=== PATIENT | female | born 1975 | race Caucasian/White ===

== ENCOUNTER 2016-08-18 09:00 | Inpatient (IN) | payer OTHER ==
--- NOTE | ~2016-08-18 | PN ---
Unit #: [id number] #: [id number] Patient: PORTER LIU [id number] [facility] [address] [place] [address] [id number] I MR#: [id number] NAME: PORTER LIU ROOM: P122 Age: 40 Sex: F Admission Date: 08/18/2016 : 1975 Attending Physician: Dave Scott M.D. Admitting Physician: Bhupendra Darnell PROGRESS NOTES DATE 08/26/2016 DISCUSSION Ms. Liu is a 40-year-old white female who was seen today and chart was reviewed and case was discussed with the staff. She has been anxious, withdrawn and rather seclusive to herself. Meanwhile, she has been cooperative with treatment recommendations and has been taking the medications and tolerating them fairly well with no reported side effects. MENTAL STATUS EXAMINATION Young white female who was casually dressed with fair personal hygiene and appears to be in no acute distress or discomfort. She was awake and alert with impaired attention and concentration. Her mood was anxious with congruent affect. She denies any suicidal or homicidal ideations and also denies any auditory or visual hallucinations. Her insight and judgement remains slightly impaired. TREATMENT PLAN 1. Will continue on current medications and treatment protocol. Will monitor her response to the medications and make further adjustments as needed. 2. Will continue to follow up. Dictated by... Dave Scott M.D. IAA/margot TD: 08/27/2016 22:41 JOB #: [id number] Unit #: [id number] #: [id number] Patient: PORTER LIU PROGRESS NOTES Page 1 of 1 X Dave Scott MD PROGRESS NOTE
--- NOTE | ~2016-08-18 | PN ---
Unit #: [id number] #: [id number] Patient: PORTER LIU [id number] [facility] [address] [place] [address] [id number] I MR#: [id number] NAME: PORTER LIU ROOM: P122 Age: 40 Sex: F Admission Date: 08/18/2016 : 1975 Attending Physician: Dave Scott M.D. Admitting Physician: Bhupendra Darnell PROGRESS NOTES DATE 08/20/2016 DISCUSSION Ms. Liu is a 40-year-old white female who was seen today and chart was reviewed. Her case was discussed with the staff. She has been anxious, withdrawn, and rather seclusive to herself. Meanwhile, she has been cooperative with treatment recommendations and has been taking medications and tolerating them fairly well. MENTAL STATUS EXAMINATION Young white female who was casually dressed with a fair personal hygiene and appears to be in no acute distress or discomfort. The patient was awake and alert on interaction with intact orientation. Her mood was anxious with congruent affect. She denies any suicidal or homicidal ideation. Her insight and judgment remains slightly impaired. TREATMENT PLAN We will continue on current medications and treatment protocol. We will monitor her response to the medications and make further adjustments as needed. Dictated by... Dave Scott M.D. IAA/joesph TD: 08/21/2016 12:56 JOB #: [id number] Unit #: [id number] #: [id number] Patient: PORTER LIU PROGRESS NOTES Page 1 of 1 X Dave Scott MD X PROGRESS NOTE
--- NOTE | ~2016-08-18 | PN ---
Unit #: [id number] #: [id number] Patient: PORTER LIU [id number] [facility] [address] [place] [address] [id number] I MR#: [id number] NAME: PORTER LIU ROOM: P122 Age: 40 Sex: F Admission Date: 08/18/2016 : 1975 Attending Physician: Dave Scott M.D. Admitting Physician: Bhupendra Darnell PROGRESS NOTES DATE 08/19/2016 DISCUSSION Ms. Liu is a 40-year-old white female who was seen today and chart was reviewed and case was discussed with the staff. She remains anxious, withdrawn, disorganized and rather seclusive to herself. Meanwhile, she has been cooperative with treatment recommendations and has been taking medications and tolerating them fairly well. MENTAL STATUS EXAMINATION Young white female who was casually dressed with fair personal hygiene and appears to be in no acute distress or discomfort. She was awake and alert on interaction with intact orientation. Her mood was anxious with congruent affect. She denies any suicidal or homicidal ideation. Her insight and judgement remains slightly impaired. TREATMENT PLAN 1. Will continue on current medications and treatment protocol. Will monitor her response to the medications and make further adjustments as needed. 2. Will continue to follow up. Dictated by... Bhupendra Darnell/margot TD: 08/19/2016 17:38 JOB #: [id number] Unit #: [id number] #: [id number] Patient: PORTER LIU PROGRESS NOTES Page 1 of 1 X Dave Scott MD X PROGRESS NOTE
--- NOTE | ~2016-08-18 | DS ---
Unit #: [id number] #: [id number] [facility] [id number] [facility] [address] [place] [address] [id number] I MR#: [id number] NAME: PORTER LIU ROOM: [facility] Age: 40 Sex: F Admission Date: 08/18/2016 : 1975 Discharge Date: 08/26/2016 Attending Physician: Dave Scott M.D. DISCHARGE SUMMARY IDENTIFYING DATA Ms. Bernardo is a 40-year-old white female who is known to us from previous encounter, was brought to the hospital by her family. DISCHARGE DIAGNOSES Psychiatric: Chronic paranoid schizophrenia. Medical: None. Stressors: Moderate psychosocial stressors. HISTORY OF PRESENT ILLNESS Please see initial psychiatric evaluation for details. PAST PSYCHIATRIC HISTORY Please see initial psychiatric evaluation for details. PAST MEDICAL HISTORY Please see initial psychiatric evaluation for details. HOSPITAL COURSE The patient was admitted to the adult psychiatric unit at [facility] and was oriented to the hospital environment. Routine p.r.n. medications were initiated, and she was started back on her home medications and medications were adjusted, and she was on Risperdal which was started back, however, long-acting injectable antipsychotic was initiated. The patient was able to receive both the loading doses while on the unit with good therapeutic response and tolerability profile and as such, it was decided that she will be discharged home and will continue treatment on an outpatient basis. DISCHARGE CONDITION Stable. PROGNOSIS Fair. Dictated by... Bhupendra Darnell/leo TD: 09/16/2016 13:01 JOB #: [id number] Unit #: [id number] #: [id number] Patient: PORTER LIU DISCHARGE SUMMARY Page 1 of 1 X Dave Scott MD X DISCHARGE SUMMARY
--- NOTE | ~2016-08-18 | PN ---
Unit #: [id number] #: [id number] Patient: PORTER LIU [id number] [facility] [address] [place] [address] [id number] I MR#: [id number] NAME: PORTER LIU ROOM: P122 Age: 40 Sex: F Admission Date: 08/18/2016 : 1975 Attending Physician: Dave Scott M.D. Admitting Physician: Bhupendra Darnell PROGRESS NOTES DELETE - COMPLETED (JOB [id number]) DATE 08/19/2016 DISCUSSION Ms. Liu is a 40-year-old white female who was seen today and chart was reviewed and case was discussed with the staff. Dictated by... Bhupendra Darnell/margot TD: 08/19/2016 17:36 JOB #: [id number] [facility] PROGRESS NOTES Page 1 of 1 X Dave Scott MD X PROGRESS NOTE
--- NOTE | ~2016-08-18 | PN ---
Unit #: [id number] #: [id number] Patient: PORTER LIU [id number] [facility] [address] [place] [address] [id number] I MR#: [id number] NAME: PORTER LIU ROOM: P122 Age: 40 Sex: F Admission Date: 08/18/2016 : 1975 Attending Physician: Dave Scott M.D. Admitting Physician: Bhupendra Darnell PROGRESS NOTES DATE August 24, 2016 DISCUSSION Ms. Liu is a 40-year-old white female, with mood disorder and psychosis, who was seen today and chart was reviewed and the case was discussed with the staff. She has been anxious, withdrawn, and seclusive to herself with bizarre behavior and disorganized thoughts and speech though she appears to be doing somewhat better and was able to sign herself into treatment. She has been taking her medications and tolerating them fairly well. MENTAL STATUS EXAMINATION Young white female, who was casually dressed with fair personal hygiene and appears to be in no acute distress or discomfort. The patient was awake and alert on interaction with intact orientation. Her mood is anxious and depressed with a congruent affect. She denies any suicidal or homicidal ideations. Her insight and judgment remain slightly impaired. TREATMENT PLAN 1. We will continue her on her current medications and treatment protocol, and will monitor her response to the medications, and make further adjustments as needed. 2. We will continue to followup. Dictated by... Bhupendra Darnell/rodrigo TD: 08/24/2016 11:29 JOB #: [id number] Unit #: [id number] #: [id number] Patient: PORTER LIU PROGRESS NOTES Page 1 of 1 X Dave Scott MD PROGRESS NOTE
--- NOTE | ~2016-08-18 | HP ---
Unit #: [id number] #: [id number] Patient: DEYA LIU [id number] [place] [address] [id number] I MR#: [id number] NAME: DEYA LIU ROOM: P122 Age: 40 Sex: F Admission Date: 08/18/2016 : 1975 Attending Physician: Dave Scott M.D. Admitting Physician: Dave Scott M.D. HISTORY AND PHYSICAL HISTORY OF PRESENT ILLNESS Deya is a 40 year old admitted to [address] [place] [address] with drug induced psychosis. She has a long history of polysubstance abuse. She has had numerous admissions to this facility. PAST MEDICAL HISTORY 1. Long history of illicit substance abuse to include spice and cocaine. 2. COPD. PAST SURGICAL HISTORY Tubal ligation. ALLERGIES No known drug allergies. SOCIAL HISTORY Smokes 1 pack per day. Denies alcohol. Admits to a long history of illicit substance abuse to include spice and cocaine. FAMILY HISTORY Medically noncontributory. 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 REVIEW OF SYSTEMS She does not answer all questions appropriately. There were no reports of nausea, vomiting or diarrhea. She has had no cough or increased temperature. CURRENT MEDICATIONS No orders received at the time of this dictation. PHYSICAL EXAMINATION GENERAL: Alert, well-nourished, in no apparent distress. VITAL SIGNS: Blood pressure 110/60, heart rate 88, respirations 16, temperature 98.6. WEIGHT: 114. HEIGHT: 5 feet 1 inch. SKIN: Warm and dry without rash or lesion. HEENT: Normocephalic. TMs not viewed. Oral and nasal passages clear. Conjunctivae clear. PERRLA. EOMs intact. NECK: Supple without lymphadenopathy or thyromegaly. HEART: Regular rate and rhythm without murmur. LUNGS: Clear. Unit #: [id number] #: [id number] Patient: DEYA LIU ABDOMEN: Soft, nontender. : Not done. EXTREMITIES: No evidence of cyanosis, clubbing or edema. Moves all without focal deficit. NEUROLOGICAL: Unable to complete extended exam. She does move all extremities without focal deficit. 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 IMPRESSION Psychiatric admission. RECOMMENDATIONS PSYCHIATRIC: Per psychiatrist. MEDICAL: See no contraindications to participate in facility's activities. MEDICAL PROGNOSIS Good. MEDICAL CONDITION Stable. Dictated by... Sonia Alexis P.A.-C. for Bhupendra Chen/margot TD: 08/18/2016 16:30 JOB #: [id number] HISTORY AND PHYSICAL Page 1 of 1 X Sonia Alexis X HISTORY AND PHYSICAL
--- NOTE | ~2016-08-18 | PN ---
Unit #: [id number] #: [id number] Patient: PORTER LIU [id number] [facility] [address] [place] [address] [id number] I MR#: [id number] NAME: PORTER LIU ROOM: [facility] Age: 40 Sex: F Admission Date: 08/18/2016 : 1975 Attending Physician: Dave Scott M.D. Admitting Physician: Bhupendra Darnell PROGRESS NOTES DATE August 22, 2016 DISCUSSION Ms. Liu is a 40-year-old white female, who was seen today and chart was reviewed and the case was discussed with the staff. She has been anxious, withdrawn, and rather seclusive to herself with blunted affect and minimal interaction. She has been cooperative with the treatment recommendations and she has been taking the medications and tolerating them fairly well with no reported side effects. MENTAL STATUS EXAMINATION Young white female, who was casually dressed with fair personal hygiene and appears to be in no acute distress or discomfort. The patient was awake and alert on interaction with intact orientation. Her mood is anxious with a congruent affect. The patient denies any suicidal or homicidal ideations. Her insight and judgment remain slightly impaired. TREATMENT PLAN 1. We will continue her on her current medications and treatment protocol, and will monitor her response to the medications, and make further adjustments as needed. 2. We will continue to followup. Dictated by... Bhupendra Darnell/rodrigo TD: 08/23/2016 05:28 JOB #: [id number] Unit #: [id number] #: [id number] Patient: PORTER LIU PROGRESS NOTES Page 1 of 1 X Dave Scott MD PROGRESS NOTE
--- NOTE | ~2016-08-18 | PA ---
Unit #: [id number] #: [id number] Patient: PORTER ILU [id number] [facility] [address] [place] [address] [id number] I MR#: [id number] NAME: PORTER LIU ROOM: P122 Age: 40 Sex: F Admission Date: 08/18/2016 : 1975 Date of Assessment: 08/18/2016 Attending Physician: Dave Scott M.D. Admitting Physician: Dave Scott M.D. PSYCHIATRIC ASSESSMENT DATE OF SERVICE 08/18/2016. IDENTIFYING DATA Ms. Liu is a 40-year-old single white female, who is a resident of [place], [place] and was self-referred to the hospital on a voluntary basis and was transferred to us from [facility] where she was initially taken by crisis intervention team of the [facility] and then was directly admitted to us. CHIEF COMPLAINT Suicidal thoughts, "I'm hearing voices." HISTORY OF PRESENT ILLNESS Ms. Liu is a 40-year-old white female, who was taken to the [facility], where she has never been before and was picked up by crisis intervention team of the [facility] after she was found walking [place] [address] ramp and she stated that she was hearing children's voices needing help in the ramp and under the overpass and in a vending machine at the [employer] and she was upset the officer could not hear the children. She told them that she had been diagnosed with paranoid schizophrenia and that she has been off her medication for a while and could not remember the name of the medication. Upon admission to the [facility], she became very agitated and was given p.r.n. Risperdal and Ativan to cut down on agitation and psychosis and was evaluated and was seen to be exhibiting very bizarre behavior and was seen to be a significant danger to self and others and recommendation for inpatient level of care was made and the patient was medically cleared and then transferred to us. SUBSTANCE ABUSE HISTORY The patient reports history of occasional experimentation with cannabis and cocaine and benzodiazepine, but denies any current ongoing substance abuse issues. PAST PSYCHIATRIC HISTORY The patient has had a history of inpatient psychiatric hospitalization at [facility] and has had outpatient treatment as well and has been diagnosed and treated for chronic paranoid schizophrenia and is supposed to be on Risperdal, but has been noncompliant with medications and as such has been decompensating. Unit #: [id number] #: [id number] Patient: PORTER LIU PAST MEDICAL HISTORY The patient's medical history is significant for asthma. ALLERGIES No known medication allergies. PERSONAL AND SOCIAL HISTORY A 40-year-old white female, who reports that she is single, unemployed, and essentially homeless and has poor social support system. MENTAL STATUS EXAMINATION Young white female, who was casually dressed with fair personal hygiene, appears to be in no acute distress or discomfort. She was awake and alert on interaction with intact orientation to time, place, and person. Her mood was anxious and depressed with a congruent affect. Her speech was slow and tangential. Her thought processes were disorganized with some looseness of associations, suicidal ideations, and auditory and visual hallucinations. Her insight and judgment remain significantly impaired. DIAGNOSTIC IMPRESSION Psychiatric: Chronic paranoid schizophrenia by history. Medical: Asthma. Stressors: Moderate psychosocial stressors. TREATMENT PLAN 1. The patient has presented with a history of mood disorder and substance abuse and has been decompensating and will need inpatient hospitalization for safety and stabilization. We will start her back on her home medications and we will also consider her to be a candidate for long-acting injectable antipsychotic. 2. Supportive therapy was provided to the patient. ESTIMATED LENGTH OF STAY 5 to 7 days. ABILITY TO HELP SELF Limited. WILLINGNESS TO HELP SELF The patient appears to be willing to help self. STRENGTHS 1. Communicative. 2. Cooperative. PROBLEMS 1. Chronic dysphoric symptoms. 2. Poor social support system. DISCHARGE CRITERIA This will be contingent upon the patient's ability to show resolution of her psychosis and her ability to stay safe to herself, particularly after discharge from the hospital. Dictated by... Dave Scott M.D. Unit #: [id number] #: [id number] Patient: PORTER LIU IAA/modl TD: 08/19/2016 12:57 JOB #: [id number] PSYCHIATRIC ASSESSMENT Page 1 of 1 X Dave Scott MD PSYCHIATRIC ASSESSMENT
--- NOTE | ~2016-08-18 | PN ---
Unit #: [id number] #: [id number] Patient: PORTER LIU [id number] [facility] [address] [place] [address] [id number] MR#: [id number] NAME: PORTER LIU ROOM: [facility] Age: 40 Sex: F Admission Date: 08/18/2016 : 1975 Attending Physician: Dave Scott M.D. Admitting Physician: Bhupendra Darnell PROGRESS NOTES DATE 08/23/2016 DISCUSSION Ms. Liu is a 40-year-old white female who was seen today and chart was reviewed and case was discussed with the staff. She has been anxious, withdrawn and rather seclusive to herself. Meanwhile, she has been cooperative with treatment recommendations as she has been taking the medications and tolerating them fairly well with no reported side effects. MENTAL STATUS EXAMINATION Young white female who was casually dressed with (1)___ personal hygiene, appears to be in no acute distress or discomfort. She was awake and alert with impaired attention and concentration. Her mood was anxious and depressed with congruent affect. Her speech was slow and restricted in content. Her thought process was disorganized with some looseness of association, paranoid ideation and delusional behavior. Her insight and judgement remains significantly impaired. TREATMENT PLAN 1. We will continue her on her current medications and treatment protocol. We will monitor her response to the medication and make further adjustments as needed. 2. We will continue to follow up. Dictated by... Bhupendra Darnell/valerie TD: 08/24/2016 00:57 JOB #: [id number] Unit #: [id number] #: [id number] Patient: PORTER LIU PROGRESS NOTES Page 1 of 1 X Dave Scott MD PROGRESS NOTE
--- NOTE | ~2016-08-18 | PN ---
Unit #: [id number] #: [id number] Patient: PORTER LIU [id number] [facility] [address] [place] [address] [id number] MR#: [id number] NAME: PORTER LIU ROOM: P122 Age: 40 Sex: F Admission Date: 08/18/2016 : 1975 Attending Physician: Dave Scott M.D. Admitting Physician: Bhupendra Darnell PROGRESS NOTES DATE OF SERVICE: 08/21/2016 SUBJECTIVE Ms. Liu is a 40-year-old white female who was seen today and chart was reviewed, and case was discussed with the staff. She has been anxious, withdrawn, and rather seclusive to herself. Meanwhile, she has been cooperative with treatment recommendation and has been taking the medications and tolerating them fairly well with no reported side effects. MENTAL STATUS EXAMINATION Young white female who was casually dressed with fair personal hygiene, appears to be in no acute distress or discomfort. She was awake and alert on interaction with intact orientation. Her mood was anxious with a congruent affect. She denies any suicidal or homicidal ideations. Her insight and judgment remain slightly impaired. TREATMENT PLAN We will continue on her current medications and treatment protocol. We will monitor her response to make further adjustments as needed. Dictated by... Bhupendra Darnell/leo TD: 08/21/2016 12:17 JOB #: [id number] [facility] PROGRESS NOTES Page 1 of 1 X Dave Scott MD PROGRESS NOTE
--- NOTE | ~2016-08-18 | PN ---
Unit #: [id number] #: [id number] Patient: PORTER LIU [id number] [facility] [address] [place] [address] [id number] I MR#: [id number] NAME: PORTER LIU ROOM: [facility] Age: 40 Sex: F Admission Date: 08/18/2016 : 1975 Attending Physician: Dave Scott M.D. Admitting Physician: Bhupendra Darnell PROGRESS NOTES DATE 08/25/2016 DISCUSSION Ms. Liu is a 40-year-old white female who was seen today and chart was reviewed and case was discussed with the staff. She has been anxious, withdrawn and rather seclusive to herself. Meanwhile, she has been cooperative with treatment recommendations as she has been taking the medications and tolerating them fairly well with no reported side effects. MENTAL STATUS EXAMINATION Young white female who was casually dressed with fair personal hygiene, appears to be in no acute distress or discomfort. She was awake and alert on interaction with intact orientation. Her mood was anxious with congruent affect. She denies any suicidal or homicidal ideations. Her insight and judgement remains slightly impaired. TREATMENT PLAN 1. We will continue her on her current medications and treatment protocol. We will monitor her response to the medications and make further adjustments as needed. 2. We will continue to follow up. Dictated by... Bhupendra Dranell/valerie TD: 08/25/2016 22:43 JOB #: [id number] Unit #: [id number] #: [id number] Patient: PORTER LIU PROGRESS NOTES Page 1 of 1 X Dave Scott MD X PROGRESS NOTE
--- NOTE | ~2016-08-18 | CO ---
Unit #: [id number] #: [id number] Patient: DEYA LIU [id number] [place] [address] [id number] I MR#: [id number] NAME: DEYA LIU ROOM: P122 Age: 40 Sex: F Admission Date: 08/18/2016 : 1975 Attending Physician: Dave Scott M.D. Consultation Date: 08/22/2016 CONSULTATION REPORT SUBJECTIVE Deya is a 40-year-old who 4 days into her admission tells us that she has no sensation in the toes of her left foot. She further tells us that this is not new, this has been going on for weeks prior to admission. She denies any injury to her back, hips, knee or foot. We have been asked to assess and give recommendations. OBJECTIVE GENERAL: Alert, well nourished, ambulating in the halls without difficulty or distress. VITAL SIGNS: Blood pressure 120/70, heart rate 80, respirations 16, temperature 98.6. EXTREMITIES: Left lower extremity without rash or lesion. Full range of motion in all joints to include her ankle and toes. Pulses are intact. Capillary refill is adequate. Sensation in her toes is present to pinprick. Proprioception intact. IMPRESSION The patient complains loss of sensation in her toes, exam is negative. PLAN She knows she can follow up with her primary care should she so desire. Dictated by... Sonia Alexis P.A.-C. for Bhupendra Chen/leo TD: 08/27/2016 01:15 JOB #: [id number] CONSULTATION REPORT Page 1 of 1 X Sonia Alexis CONSULTATION REPORT
[~2016-08-18 09:00] MED LIST: ANTIBIOTIC; ERYTHROMYC3.5 GM OPT OD
== END 2016-08-26 14:00 | disposition home or self-care (01) | DRG 885 ==
LOC: P1S 12:12
DX: F20.0 Paranoid schizophrenia (principal); F39 Unspecified mood [affective] disorder; J44.9 Chronic obstructive pulmonary disease, unspecified; F17.210 Nicotine dependence, cigarettes, uncomplicated; R20.8 Other disturbances of skin sensation